=== PATIENT | male | born 1970 | race Caucasian/White ===

== ENCOUNTER 2020-12-13 09:08 | Emergency (ER) | payer MEDICAID ==
[2020-12-13 10:01] LABS: HEMOGLOBIN 15.5 gm/dl (14.0-17.5); RED BLOOD COUNT 4.91 M/UL (4.20-5.50); WHITE BLOOD COUNT 8.5 K/UL (4.5-11.0)
[2020-12-13 10:22] LABS: BUN/CREATININE RATIO 14 (0-10)
[2020-12-13] MEDS ORDERED: KEPPRA500 MG PO (11:19)
[2020-12-13] MEDS ORDERED: AUGMENTIN 875-1 EACH PO (11:19)
== END 2020-12-13 13:15 | disposition home or self-care (01) ==
LOC: ER1 09:08
PROVIDERS: Physician Assistant
DX: R56.9 Unspecified convulsions (principal); J32.0 Chronic maxillary sinusitis; R73.9 Hyperglycemia, unspecified; K21.9 Gastro-esophageal reflux disease without esophagitis; I10 Essential (primary) hypertension; E78.5 Hyperlipidemia, unspecified; F17.200 Nicotine dependence, unspecified, uncomplicated; Z79.899 Other long term (current) drug therapy
CPT/HCPCS: 70450; 80053; 80307; 81001; 82550; 82553; 83874; 84484; 85025; 93005; 96374; 96375; 99285; G0480; J1953; J2060; J3411; J3475; J7030